=== PATIENT | female | born 1940 | race African-American/Black ===

== ENCOUNTER → 2016-05-24 | Outpatient (CLI) | payer MEDICARE, OTHER ==
--- NOTE | ~2016-05-24 | CR58 ---
[facility] Service of [facility] & [facility] RADIOLOGY TEXT RESULTS PATIENT: RADHA VANG LOCATION: [facility] : 40 UNIT #: [id number] AGE: [address]: J Luis Crowley MD SEX: F ORDER DR: [id number] [address] [address] [id number] O MR#: [id number] Acc #: [id number] NAME: RADHA VANG : 1940 SEX: F STUDY DATE/TIME: 05/24/2016 14:01 UNIT: [facility] ROOM: STUDY DESCRIPTION: CR Cervical Spine 2 or 3 Views Attending Physician: J Luis Crowley M.D. Referring Physician: J Luis Crowley M.D. Ordering Physician: J Luis Crowley M.D. Primary Care Physician: J Luis Crowley M.D. MEDICAL IMAGING REPORT This report is preliminary unless electronic signature is present. EXAM Cervical spine series, 05/24/2016. HISTORY Arthritis of the cervical spine. Prior history of left breast cancer. Neck pain in cervical spine. TECHNIQUE AP lateral swimmers, open mouth odontoid and submental vertex views of the cervical spine are presented. No comparison. FINDINGS The patient is status post median sternotomy and cardiac valve repair. There is a dual lead cardiac pacemaker implanted over the left chest with leads extending through left subclavian vein and terminating in right atrial and right ventricular levels. There is a right-sided chest port extending through the right subclavian vein and terminating in the right atrium. The exact termination is not visualized. Moderate cardiac enlargement. The lungs show mild bronchial wall prominence in the [id number] lung zones. Correlate with any clinical signs or symptoms of reactive airway disease or bronchitis. No dense airspace disease, pleural effusion or pneumothorax is clearly seen on this limited views of the lungs. There is incompletely visualized levoscoliosis of the lower thoracic spine and at least upper lumbar spine. The cervical spine shows alignment within normal limits. The vertebral body heights show very minimal degenerative loss of height anteriorly at the C4 and C5 levels. Diffuse moderate to marked intervertebral disc space narrowing most pronounced C4-C5, C5-C6, C6-C7. Multilevel anterior osteophyte formations. Probable posterior osteophyte formations C4 - C5, C5 - C6 and C6 - C7. The C1 - C2 relationship appears normal though it is poorly visualized on the open-mouth odontoid view due to bony overlap. The odontoid process is well visualized on the submental vertex view and is ST[facility] A Service of [facility] RADIOLOGY TEXT RESULTS PATIENT: RADHA VANG LOCATION: [facility] : 40 UNIT #: [id number] AGE: [address]: J Luis Crowley MD SEX: F ORDER DR: intact. Prevertebral soft tissues unremarkable. Scattered dental fillings. If further evaluation of spinal canal and neural foraminal contents would assist in patient management, consider CT cervical spine. Dictated by... Micha Hsu M.D. THIS IS AN ELECTRONICALLY VERIFIED REPORT Micha Hsu M.D. at 05/25/2016 5:13 PM Sofya TD: 05/24/2016 20:06 JOB #: [id number] MEDICAL IMAGING REPORT Page 1 of 1
--- NOTE | ~2016-05-24 | CR230 ---
[facility] A Service of [facility] & [facility] RADIOLOGY TEXT RESULTS PATIENT: RADHA VANG LOCATION: [facility] : 40 UNIT #: [id number] AGE: [address]: J Luis Crowley MD SEX: F ORDER DR: [id number] [address] [address] [id number] O MR#: [id number] Acc #: [id number] NAME: RADHA VANG : 1940 SEX: F STUDY DATE/TIME: 05/24/2016 14:01 UNIT: [facility] ROOM: STUDY DESCRIPTION: CR Shoulder Min 2 View Rt Attending Physician: J Luis Crowley M.D. Referring Physician: J Luis Crowley M.D. Ordering Physician: J Luis Crowley M.D. Primary Care Physician: J Luis Crowley M.D. MEDICAL IMAGING REPORT This report is preliminary unless electronic signature is present. EXAM Right shoulder series, 05/24/2016 HISTORY Dislocation of right shoulder, shoulder disjointed 2-3 months. Prior history of left breast cancer. Neck pain. Right shoulder pain. FINDINGS AP internal and external rotation views of the right shoulder are presented with a transscapular view. There is a vascular stent in medial right upper arm. Given caliber, I favor that this is probably venous in location. Correlate with history. There is a right chest port in place. Catheter terminates in mid right atrium. Status post median sternotomy and cardiac valve repair. Moderate cardiac enlargement. There is a left-sided cardiac pacemaker in place. No acute bony abnormality. No fracture or traumatic malalignment. The right shoulder joint is normally located. Minimal degenerative change in the right shoulder joint. The periarticular soft tissues show no acute abnormality. Visualized pulmonary parenchyma shows mild bronchial wall prominence, which could be a reflection of bronchitis, reactive airway disease, or some degree of chronic bronchiectasis. There is thoracolumbar scoliosis. Dictated by... Micha Hsu M.D. THIS IS AN ELECTRONICALLY VERIFIED REPORT Micha Hsu M.D. at 05/25/2016 5:13 PM LIA/avery TD: 05/24/2016 22:02 [facility] A Service of [facility] & [facility] RADIOLOGY TEXT RESULTS PATIENT: RADHA VANG LOCATION: [facility] : 40 UNIT #: [id number] AGE: [address]: J Luis Crowley MD SEX: F ORDER DR: JOB #: [id number] MEDICAL IMAGING REPORT Page 1 of 1
== END | disposition home or self-care (01) ==
LOC: SRAD 13:37
DX: S43.004A Unspecified dislocation of right shoulder joint, initial encounter (principal); M47.812 Spondylosis without myelopathy or radiculopathy, cervical region
CPT/HCPCS: 72040; 73030